=== PATIENT | male | born 1945 | race Caucasian/White ===

== ENCOUNTER 2018-02-16 13:55 | Inpatient (IN) | payer MEDICARE, MEDICAID ==
[~2018-02-16] VITALS: Ht 175.3 cm; Wt 70.5 kg
[~2018-02-16 13:55] MED LIST: BUPIVACAINE HCL/PF 0.5% 30 ML VIAL ONE; CeFAZolin 2 GM/DEXTROSE 50 ML IV ONE; FentaNYL CITRATE-PF 100 MCG/2 ML VIAL IVP ONE; GUM MASTIC/STORAX/MSAL/ALCOHOL LIQUID 0.67 ML VIAL TP ONE; HYDROmorphone 2 MG/ML SYRINGE IVP ONE; LIDOCAINE HCL 2%/EPI 1:200,000/PF 20 ML VIAL ONE; METOPROLOL TARTRATE 5 MG/5 ML VIAL IVP ONE; MIDAZOLAM HCL 2 MG/2 ML VIAL IVP ONE; OMEP20 PO; RINGERS SOLUTION,LACTATED 1,000 ML IV ONE; SODIUM CL IRRIG SOLN BAG 0 ML IRRIG ONE
[2018-02-16 15:09] LABS: BASOPHILS % (AUTO) 0.8 % (0.0-2.0); EOSINOPHILS % (AUTO) 3.1 % (1.0-6.0); HEMOGLOBIN 16.6 g/dL (13.5-17.5); LYMPHOCYTES # (AUTO) 2.6 K/uL (1.0-4.8); LYMPHOCYTES % (AUTO) 37.4 % (22.0-44.0); MEAN CORPUSCULAR HGB CONC 34.5 G/dL (31.0-37.0); MEAN CORPUSCULAR VOLUME 95 fL (80-100); MONOCYTES # (AUTO) 0.7 K/uL (0.1-1.0); NEUTROPHILS # (AUTO) 3.4 K/uL (1.8-7.7); NEUTROPHILS % (AUTO) 48.7 % (40.0-70.0); PLATELET COUNT (AUTO) 197 K/uL (150-450); RED BLOOD CELL COUNT(AUTO) 5.03 MIL/uL (4.50-5.90); RED CELL DISTRIBUTION WIDTH 13.8 % (11.5-14.5)
[2018-02-16 15:21] LABS: ANION GAP 8 mmol/L (8-16); CALCIUM, TOTAL 8.7 mg/dL (8.8-10.5); CARBON DIOXIDE 26 mmol/L (22-29); CHLORIDE 105 mmol/L (98-107); CREATININE 0.88 mg/dL (0.60-1.30); GLOMERULAR FILTR. RATE CALC > 60 mL/min (>60); GLUCOSE,RANDOM 91 mg/dL (70-110); POTASSIUM 3.9 mmol/L (3.5-5.1); SODIUM SERUM 139 mmol/L (136-145); UREA NITROGEN, BLOOD 19 mg/dL (7-18)
[2018-02-16] MEDS ORDERED: RINGERS SOLUTION,LACTATED 1,000 ML IV ONE (18:47)
[2018-02-16] MEDS ORDERED: ALBUMIN HUMAN 25%-12.5GM/50ML 50 ML ONE (18:48)
[2018-02-16] MEDS ORDERED: METOPROLOL TARTRATE 5 MG/5 ML VIAL ONE (19:11)
[2018-02-16] MEDS ORDERED: HYDROmorphone 2 MG/ML SYRINGE IVP PRN (19:30)
[2018-02-16] MEDS ORDERED: MEPERIDINE HCL/PF 25 MG/0.5 ML AMP IVP PRN (19:30)
[2018-02-16] MEDS ORDERED: FentaNYL CITRATE-PF 100 MCG/2 ML VIAL IVP PRN (19:30)
[2018-02-16] MEDS ORDERED: ACETAMINOPHEN 500 MG TABLET PO PRN (20:00)
[2018-02-16] MEDS ORDERED: IBUPROFEN 600 MG TABLET PO PRN (20:00)
[2018-02-16] MEDS ORDERED: OXYGEN THERAPY IH SCH (20:00)
[2018-02-16 20:56] VITALS: BP 120/72
[2018-02-16] MEDS ORDERED: ALBUTEROL SULFATE HFA 90 MCG/PUFF 8 GM INHALER IH ONE (22:54)
[2018-02-16] MEDS ORDERED: LIDOCAINE HCL/PF 2% 5 ML SYRINGE IVP ONE (22:54)
[2018-02-16] MEDS ORDERED: SUCCINYLCHOLINE CHLORIDE 20 MG/ML 10 ML VIAL IVP ONE (22:54)
[2018-02-16] MEDS ORDERED: ROCURONIUM BROMIDE 10 MG/ML 5 ML VIAL IVP ONE (22:54)
[2018-02-16] MEDS ORDERED: LABETALOL HCL 5 MG/ML 20 ML VIAL IVP ONE (22:54)
[2018-02-16] MEDS ORDERED: PROPOFOL 1% 20 ML VIAL IVP ONE (22:54)
[2018-02-16] MEDS ORDERED: METOCLOPRAMIDE HCL 5 MG/ML 2 ML VIAL IVP ONE (22:54)
[2018-02-16] MEDS ORDERED: GLYCOPYRROLATE 0.2 MG/ML VIAL IM ONE (22:54)
[2018-02-16] MEDS ORDERED: NEOSTIGMINE METHYLSULFATE 1 MG/ML 10 ML VIAL IVP ONE (22:54)
[2018-02-16] MEDS ORDERED: ESMOLOL HCL 10 MG/ML 10 ML VIAL IVP ONE (22:54)
[2018-02-16] MEDS ORDERED: DEXAMETHASONE SOD PHOS 4 MG/ML VIAL IVP ONE (22:54)
[2018-02-16] MEDS ORDERED: PHENYLEPHRINE HCL 10 MG/ML VIAL IVP ONE (22:54)
== END 2018-02-16 22:55 | disposition home or self-care (01) | DRG 352 ==
LOC: SURGERY 13:55 → 6N 20:18
PROVIDERS: ADMIT Surgery; ATTEND Surgery
PROC: 0YU54JZ Supplement Right Inguinal Region with Synthetic Substitute, Percutaneous Endoscopic Approach (ICD-10-PCS; principal; 2018-02-16 17:00)
DX: K40.90 Unilateral inguinal hernia, without obstruction or gangrene, not specified as recurrent (principal); N40.0 Benign prostatic hyperplasia without lower urinary tract symptoms; Z87.891 Personal history of nicotine dependence; Z83.3 Family history of diabetes mellitus
CPT/HCPCS: 93005; J0330; J0690; J1100; J1170; J2250; J2370; J2704; J2765; J3010; J3490; J3535; J7120; P9047